=== PATIENT | male | born 1960 | race Caucasian/White ===

== ENCOUNTER 2023-01-23 17:02 | Emergency (ER) | payer BC ==
[~2023-01-23] VITALS: Ht 160 cm; Wt 75.9 kg
[2023-01-23 18:00] LABS: BASOPHILS # (AUTO) 0.1 X10'3 (0-0.2); BASOPHILS % (AUTO) 0.6 % (0-1); EOSINOPHILS # (AUTO) 0.2 X10'3 (0-0.9); EOSINOPHILS % (AUTO) 2.8 % (0-6); HEMATOCRIT 46.4 % (42.0-52.0); LYMPHOCYTES # (AUTO) 1.3 X10'3 (1.1-4.8); LYMPHOCYTES % (AUTO) 14.5 % (21-51); MEAN CORPUSCULAR HEMOGLOBIN 30.7 PG (27.0-31.0); MEAN CORPUSCULAR HGB CONC 34.4 g/dL (33.0-36.5); MEAN CORPUSCULAR VOLUME 89.4 FL (78-98); MEAN PLATELET VOLUME 7.4 FL (7.4-10.4); MONOCYTES # (AUTO) 0.6 X10'3 (0-0.9); NEUTROPHILS # (AUTO) 6.7 X10'3 (1.8-7.7); NEUTROPHILS % (AUTO) 75.1 % (42-75); PLATELET COUNT 257 X10'3 (140-440); RED BLOOD COUNT 5.19 X10'6 (4.70-6.10); RED CELL DISTRIBUTION WIDTH 13.4 % (11.5-14.5)
[2023-01-23 18:03] LABS: CLARITY,URINE CLOUDY (Clear); COLOR,URINE YELLOW (Yellow); GLUCOSE, URINE NEGATIVE (Neg); KETONES,URINE NEGATIVE (Neg); LEUKOCYTE ESTERASE ,URINE NEGATIVE (Neg); NITRITES, URINE NEGATIVE (Neg); OCCULT BLOOD,URINE LARGE (Neg); PH,URINE 5.5 (4.8-8.0); PROTEIN,URINE TRACE mg/dl (Neg); UROBILINOGEN,URINE 0.2 E.U/dL (0.2-1.0)
[2023-01-23 18:11] LABS: UA COLLECTION TYPE CLN CATCH MIDSTREAM
[2023-01-23 18:17] LABS: BACTERIA,URINE 3+ /HPF (Neg); MUCUS STRANDS MANY /LPF (Neg); RBC,URINE TNTC /HPF (0-2); SQUAMOUS EPITHELIAL CELL,UR FEW /LPF (FEW)
[2023-01-23 18:18] LABS: ALANINE AMINOTRANSFERASE 26 U/L (12-78); ALBUMIN 4.2 G/DL (3.4-5.0); ALBUMIN/GLOBULIN RATIO 1.4 (1.1-1.5); ALKALINE PHOSPHATASE 128 IU/L (46-116); ANION GAP 10 (8-16); ASPARTATE AMINO TRANSFERASE 20 U/L (10-37); BILIRUBIN,TOTAL 0.4 MG/DL (0.1-1.0); BLOOD UREA NITROGEN 14 MG/DL (7-18); BUN/CREATININE RATIO 11.7 (10.0-20.0); CALCIUM 8.9 MG/DL (8.5-10.1); CHLORIDE 104 MMOL/L (99-107); GLUCOSE 117 MG/DL (70-104); LIPASE 74 U/L (73-393); POTASSIUM 3.8 MMOL/L (3.5-5.1); SODIUM 141 MMOL/L (135-145); TOTAL CARBON DIOXIDE 26.7 MMOL/L (24-32); TOTAL PROTEIN 7.3 G/DL (6.4-8.2); eGFR 61 ML/MIN
[2023-01-23 18:18] LABS: TRANSITIONAL EPI CELLS,URINE FEW /HPF
[2023-01-23 18:19] LABS: CAL OXALATE CRYSTALS FEW /HPF (NEGATIVE)
[2023-01-23 19:36] VITALS: TEMP 97.3
[2023-01-23] MEDS ORDERED: ondansetron/PF 4mg/2ml inj IV ONE (20:05)
[2023-01-23] MEDS ORDERED: morphine 4 MG/ML inj SYRINge IV ONE (20:05)
[2023-01-23] MEDS ORDERED: normal saline 1000ML IV soln IVB ONE (20:05)
[2023-01-23 20:34] VITALS: BP 139/77; PULSE 64; O2SAT 99
[2023-01-23] MEDS ORDERED: ONDA4TAB12 PO (21:22)
[2023-01-23] MEDS ORDERED: CEPH-585 PO (21:22)
[2023-01-23] MEDS ORDERED: HYDROcodone/acetaminophen 10/325mg tab PO ONE (21:25)
[2023-01-23] MEDS ORDERED: cephalexin 250mg capsule PO ONE (21:25)
[2023-01-23] MEDS ORDERED: HYDR-3973 PO (21:39)
[2023-01-23 21:56] VITALS: RESP 18
== END 2023-01-23 22:05 | disposition home or self-care (01) ==
LOC: ER 17:03
DX: R10.31 Right lower quadrant pain (principal); R11.0 Nausea; R30.0 Dysuria; N20.0 Calculus of kidney; Z88.8 Allergy status to other drugs, medicaments and biological substances; Z91.013 Allergy to seafood; Z79.899 Other long term (current) drug therapy; Z88.6 Allergy status to analgesic agent
CPT/HCPCS: 36415; 74176; 80053; 81001; 83690; 85025; 87088; 96361; 96374; 96375; 99285; J2270; J2405; J7030